=== PATIENT | male | born 1960 | race Caucasian/White ===

== ENCOUNTER 2017-04-22 10:35 | Inpatient (IN) | payer OTHER ==
[2017-04-22 10:45] VITALS: BMI 22.9
--- NOTE | 2017-04-22 10:58 | PDOC ---
History of Present Illness - General History Source: Patient Exam Limitations: No Limitations - History of Present Illness Initial Comments: 04/22/17 11:25 Patient is a 56 year old male with a significant past medical history of degenerative disk in back who presents to the ED with complaints of left sided pain for 3 days. Patient reports pain beginning night with slight relief sunday secondary to alcohol consumption. Patient states pain is excruciating with 8/10 intensity preventing sleep. He states slight headache beginning yesterday. He reports no bowel movement since sunday followed by no solid food ingestion since sunday. Patient reports slight nausea and chills secondary to soup and water consumption yesterday afternoon. Denies urinary urgency, urinary frequency. Denies kidney stone Hx. Denies any new injuries. Denies any trauma. Denies any radiating pain. Denies chest pain, SOB, dizziness, lightheadedness. Denies hematuria. Denies any other symptoms. Social: Smoker ( 1 pack per day), social alcohol drinker. Diverticulitis FHx ( mother) Allergies: N/A <Jerrod Mccray - Last Filed: 04/22/17 11:25> <Dorys Bah - Last Filed: 04/22/17 13:06> - General Chief Complaint: Pain, Acute Stated Complaint: PAIN Time Seen by Provider: 04/22/17 10:58 Past History <Jerrod Mccray - Last Filed: 04/22/17 11:25> - Psycho/Social/Smoking Cessation Hx Anxiety: No Suicidal Ideation: No Smoking History: Current every day smoker Have you smoked in the past 12 months: Yes Number of Cigarettes Smoked Daily: 20 Information on smoking cessation initiated: Yes 'Breaking Loose' booklet given: 09/29/13 Hx Alcohol Use: Yes ([facility]) Substance Use Type: None <Dorys Bah - Last Filed: 04/22/17 13:06> - Past Medical History Allergies/Adverse Reactions: Allergies Allergy/AdvReac Type Severity Reaction Status Date / Time No Known Allergies Allergy Verified 04/22/17 10:42 Home Medications: Ambulatory Orders Ibuprofen 800 mg PO TID 04/22/17 Review of Systems - Review of Systems Able to Perform ROS?: Yes Comments:: 04/22/17 11:26 GENERAL/CONSTITUTIONAL: + Chills. + Headache. No fever. No weakness. HEAD, EYES, EARS, NOSE AND THROAT: No change in vision. No ear pain or discharge. No sore throat. GASTROINTESTINAL: + Nausea. + Constipation. No vomiting, diarrhea GENITOURINARY: No dysuria, frequency, or change in urination. CARDIOVASCULAR: No chest pain or shortness of breath. RESPIRATORY: No cough, wheezing, or hemoptysis. MUSCULOSKELETAL: + Left flank pain No joint or muscle swelling or pain. No neck or back pain. SKIN: No rash NEUROLOGIC: No headache, vertigo, loss of consciousness, or change in strength/ sensation. ENDOCRINE: No increased thirst. No abnormal weight change. HEMATOLOGIC/LYMPHATIC: No anemia, easy bleeding, or history of blood clots. ALLERGIC/IMMUNOLOGIC: No hives or skin allergy. All Other Systems: Reviewed and Negative <Jerrod Mccray - Last Filed: 04/22/17 11:25> *Physical Exam - Vital Signs Last Vital Signs Temp Pulse Resp BP Pulse Ox 99.6 F 103 H 19 109/61 97 04/22/17 10:42 04/22/17 10:42 04/22/17 10:42 04/22/17 10:42 04/22/17 10:42 - Physical Exam Comments: 04/22/17 11:26 GENERAL: Awake, alert, and fully oriented, in no acute distress HEAD: No signs of trauma EYES: PERRLA, EOMI, sclera anicteric, conjunctiva clear ENT: Auricles normal inspection, hearing grossly normal, nares patent, oropharynx clear without exudates. Moist mucosa NECK: Normal ROM, supple, no lymphadenopathy, JVD, or masses LUNGS: Breath sounds equal, clear to auscultation bilaterally. No wheezes, and no crackles HEART: Regular rate and rhythm, normal S1 and S2, no murmurs, rubs or gallops ABDOMEN: Soft, nontender, normoactive bowel sounds. No guarding, no rebound. No masses MUSCULOSKELETAL: + Left flank tenderness. + Left lower quadrent mild super pubic tenderness. EXTREMITIES: Normal range of motion, no edema. No clubbing or cyanosis. No cords, erythema, or tenderness NEUROLOGICAL: Cranial nerves II through XII grossly intact. Normal speech, normal gait SKIN: Warm, Dry, normal turgor, no rashes or lesions noted. <Jerrod Mccray - Last Filed: 04/22/17 11:25> - Vital Signs Last Vital Signs Temp Pulse Resp BP Pulse Ox 99.6 F 103 H 19 109/61 97 04/22/17 10:42 04/22/17 10:42 04/22/17 10:42 04/22/17 10:42 04/22/17 10:42 <Dorys Bah - Last Filed: 04/22/17 13:06> ED Treatment Course - LABORATORY CBC & Chemistry Diagram: 04/22/17 11:16 04/22/17 11:16 <Jerrod Mccray - Last Filed: 04/22/17 11:25> - LABORATORY CBC & Chemistry Diagram: 04/22/17 11:16 04/22/17 11:16 <Dorys Bah - Last Filed: 04/22/17 13:06> Medical Decision Making - Medical Decision Making 04/22/17 1145 56yo male with L flank pain for multiple days assoc with nausea - was intermittent now constant. -concern for UTI, pyelo, renal colic, vs colitis -labs -ua -ct abd/pelvis -pain control, nausea control, ivf hydration 04/22/17 13:01 labs reviewed, elevated WBC to >19, diverticulitis on CT with fat stranding. Will start abx and will discuss with IM given elevated WBC. 04/22/17 13:02 call placed to IM, pending call back, pt with persistent pain will remedicate. pt updated on lab and imaging results. 04/22/17 13:[address] Chris, IM resident who accepts pt for admission to service under Dr. Franklin <Dorys Bah - Last Filed: 04/22/17 13:06> *DC/Admit/Observation/Transfer - Attestations Scribe Attestion: 04/22/17 11:27 Documentation prepared by Jerrod Mccray, acting as medical laboratory assistant for Dorys Bah DO, MD. <Jerrod Mccray - Last Filed: 04/22/17 11:25> - Discharge Dispostion Admit: Yes - Attestations Physician Attestion: 04/22/17 11:35 I, Dr. Dorys Bah DO, attest that this document has been prepared under my direction and personally reviewed by me in its entirety. I further attest, that it accurately reflects all work, treatment, procedures and medical decision -making performed by me. 04/22/17 13:06 <Dorys Bah - Last Filed: 04/22/17 13:06> Diagnosis at time of Disposition: Acute diverticulitis of intestine - Discharge Dispostion Condition at time of disposition: Guarded
[2017-04-22] MEDS ORDERED: SODIUM CHLORIDE 0.9% 1000 ML INFUS.BAG IV ONE ×2 (11:10→12:36)
[2017-04-22] MEDS ORDERED: ONDANSETRON 4 MG/2 ML VIAL IVPUSH ONE (11:10)
[2017-04-22] MEDS ORDERED: KETOROLAC TROMETHAMINE 15 MG/ML VIAL IVPUSH ONE (11:10)
[2017-04-22] MEDS ORDERED: ONDANSETRON 4 MG/2 ML VIAL ONE (11:21)
[2017-04-22] MEDS ORDERED: KETOROLAC TROMETHAMINE 15 MG/ML VIAL ONE (11:21)
[2017-04-22 11:26] LABS: BASOPHIL 0.3 % (0-2.0); EOSINOPHIL 0.1 % (0-4.5); MCH 31.3 pg (25.7-33.7); MCHC 34.1 g/dl (32.0-35.9); MEAN CELL VOLUME 91.9 fl (80-96); MEAN PLT VOLUME 9.3 fl (7.5-11.1); NEUTROPHILS 82.4 % (42.8-82.8); PLATELET COUNT 259 K/MM3 (134-434); WHITE BLOOD COUNT 19.2 K/mm3 (4.0-10.0)
[2017-04-22 11:53] LABS: ALBUMIN 3.3 g/dl (3.4-5.0); ALK PHOS 92 U/L (45-117); ANION GAP 10 (8-16); CALCIUM 8.8 mg/dL (8.5-10.1); CO2 24 mmol/L (21-32); GLUCOSE,RANDOM 117 mg/dL (74-106); SGOT/AST 6 U/L (15-37); SGPT/ALT 14 U/L (12-78); TOT PROT 7.1 g/dl (6.4-8.2)
[2017-04-22] MEDS ORDERED: METRONIDAZOLE 500 MG PREMIXED 100 ML IVPB ONE ×2 (12:32→13:02)
[2017-04-22] MEDS ORDERED: CIPROFLOXACIN 400 MG/D5W 200 ML IVPB ONE (12:32)
[2017-04-22] MEDS ORDERED: morphine CARPU-JECT 2 MG/1 ML DISP.SYRIN IVPUSH ONE (12:37)
[2017-04-22] MEDS ORDERED: morphine CARPU-JECT 2 MG/1 ML DISP.SYRIN ONE (13:02)
[2017-04-22 13:20] LABS: URINE APPEARANCE SLCLOUDY; URINE BILIRUBIN NEGATIVE (NEGATIVE); URINE BLOOD 2+ (NEGATIVE); URINE COLOR AMBER; URINE GLUCOSE (UA) NEGATIVE (NEGATIVE); URINE KETONE NEGATIVE (NEGATIVE); URINE NITRITE NEGATIVE (NEGATIVE)
[2017-04-22 13:35] LABS: URINE LEUK ESTERASE 1+ (NEGATIVE); URINE PROTEIN 1+ (NEGATIVE)
[2017-04-22 13:37] LABS: URINE HYALINE CAST 32 /lpf; URINE MUCUS MANY; URINE RBC 1 /hpf (0-3); URINE WBC 17 /hpf (3-5)
[2017-04-22] MEDS ORDERED: PNEUMOC 13-VAL CONJ-DIP CRM/PF 0.5 ML DISP.SYRIN IM ONE (14:18)
--- NOTE | 2017-04-22 15:05 | PN ---
Teaching Attending Note Name of Resident: Jayesh Chris ATTENDING PHYSICIAN STATEMENT I saw and evaluated the patient. I reviewed the resident's note and discussed the case with the resident. I agree with the resident's findings and plan as documented. SUBJECTIVE: This is a 56 year old man with a history of degenerative disease of the spine who comes to the ER complaining of LLQ abdominal pain x 3 days. He says he had intermittent pain for the first 2 days, then yesterday it became constant and more severe. Last night, he had shaking chills. He has had nausea but denies vomiting, diarrhea, melena, rectal bleeding, dysuria, hematuria, urinary frequency. OBJECTIVE: Vital Signs Period Temp Pulse Resp BP Sys/Gallegos Pulse Ox Last 24 Hr 99.6 F 71-103 18-19 106-109/61-69 96-97 HEART: S1S2, RRR LUNGS: Clear ABDOMEN: Soft, non-distended, (+) LLQ tenderness, normal BS EXTREMITIES: No edema ASSESSMENT AND PLAN: This is a 56 year old man with a history of degenerative disc disease who presented to the ER with LLQ pain, nausea and shaking chills. 1. Sepsis (tachycardia, leukocytosis) secondary to acute diverticulitis - NPO - IV fluid - IV Levaquin, Flagyl - Pain control - Zofran as needed for nausea - Will need colonoscopy in 1 month 2. Degenerative spine disease 3. 5 mm RML lung nodule
[2017-04-22] MEDS ORDERED: ONDANSETRON 4 MG/2 ML VIAL IVPB PRN (17:10)
[2017-04-22] MEDS ORDERED: morphine CARPU-JECT 2 MG/1 ML DISP.SYRIN IVPUSH PRN (17:10)
[2017-04-22] MEDS: SODIUM CHLORIDE 1,000 ML IV SCH (17:39)
--- NOTE | 2017-04-22 17:53 | HP ---
CHIEF COMPLAINT: L sided abdominal pain HISTORY OF PRESENT ILLNESS: 56 y/o M w/PMH of degenerative disc disease of the spine presents to the ER with L sided abdominal pain since Sunday. Pt felt the pain was tolerable and continued with usual activities. Yesterday pain became 10/10 and pt did not eat and only drank water. Pt also had chills yesterday and some nausea but no vomiting. Pt has had no BM yesterday but mainly because he has not been eating but has passed gas. Pain did not resolve and pt came to ER. Pt denies any changes in diet, N/V, diarrhea, blood in stool, dysuria, fevers, chest pain, SOB, recent travel, sick contacts. This is the first time he has had these symptoms. ER course was notable for: (1) CT abd/pelvis (2) (3) Recent Travel: denies PAST MEDICAL HISTORY: degenerative disc disease of the spine PAST SURGICAL HISTORY: inguinal hernia repair (as a child), ankle surgery 10-15 years ago for torn ligament Social History: Smokin ppd Alcohol: 2 drinks once a week Drugs: denies Family History: Mother has hx of diverticulitis Allergies No Known Allergies Allergy (Verified 04/22/17 10:42) HOME MEDICATIONS: Home Medications Medication Instructions Recorded Ibuprofen 800 mg PO TID 04/22/17 Omeprazole 40 mg PO DAILY 04/22/17 REVIEW OF SYSTEMS CONSTITUTIONAL: +chills Absent: fever CARDIOVASCULAR: Absent: chest pain, lightheadedness, peripheral edema RESPIRATORY: Absent: cough, shortness of breath, GASTROINTESTINAL: +LLQ and L flank pain, nausea Absent: vomiting, diarrhea, constipation, hematochezia GENITOURINARY: Absent: dysuria NEUROLOGIC: Absent: headache PHYSICAL EXAMINATION Vital Signs - 24 hr 04/22/17 14:07 Pulse Rate 71 Respiratory 18 Rate Blood Pressure 106/69 O2 Sat by Pulse 96 Oximetry (%) GENERAL: Awake, alert, and fully oriented, in no acute distress. EYES: extraocular movements intact, sclera anicteric, conjunctiva clear. No lid lag. EARS, NOSE, THROAT: Ears normal, nares patent NECK: Normal range of motion, supple LUNGS: Breath sounds equal, clear to auscultation bilaterally. No wheezes, and no crackles. No accessory muscle use. HEART: Regular rate and rhythm, normal S1 and S2 without murmur, rub or gallop. ABDOMEN: LLQ tenderness, L flank pain, hyperactive BS, Soft, no guarding, no rebound, no masses. LOWER EXTREMITIES: No calf tenderness. No peripheral edema. NEUROLOGICAL: Normal speech. Gait not observed. PSYCHIATRIC: Cooperative. Good eye contact. Appropriate mood and affect. SKIN: Warm, dry CBCD WBC 19.2 K/mm3 (4.0-10.0) H 04/22/17 11:16 RBC 4.65 M/mm3 (4.00-5.60) 04/22/17 11:16 Hgb 14.6 GM/dL (11.7-16.9) 04/22/17 11:16 Hct 42.7 % (35.4-49) 04/22/17 11:16 MCV 91.9 fl (80-96) 04/22/17 11:16 MCHC 34.1 g/dl (32.0-35.9) 04/22/17 11:16 RDW 13.0 % (11.9-15.9) 04/22/17 11:16 Plt Count 259 K/MM3 (134-434) 04/22/17 11:16 MPV 9.3 fl (7.5-11.1) 04/22/17 11:16 CMP Sodium 138 mmol/L (136-145) 04/22/17 11:16 Potassium 3.9 mmol/L (3.5-5.1) 04/22/17 11:16 Chloride 104 mmol/L (98-107) 04/22/17 11:16 Carbon Dioxide 24 mmol/L (21-32) 04/22/17 11:16 Anion Gap 10 (8-16) 04/22/17 11:16 BUN 14 mg/dL (7-18) 04/22/17 11:16 Creatinine 1.0 mg/dL (0.7-1.3) 04/22/17 11:16 Creat Clearance w eGFR > 60 (>60) 04/22/17 11:16 Random Glucose 117 mg/dL (74-106) H 04/22/17 11:16 Calcium 8.8 mg/dL (8.5-10.1) 04/22/17 11:16 Total Bilirubin 1.0 mg/dL (0.2-1.0) 04/22/17 11:16 AST 6 U/L (15-37) L 04/22/17 11:16 ALT 14 U/L (12-78) 04/22/17 11:16 Alkaline Phosphatase 92 U/L (45-117) 04/22/17 11:16 Total Protein 7.1 g/dl (6.4-8.2) 04/22/17 11:16 Albumin 3.3 g/dl (3.4-5.0) L 04/22/17 11:16 Laboratory Tests 04/22/17 11:16 Lipase 70 L Imaging: CT abd/pelvis: Impression: Stranding of the left perinephric fat likely due to the adjacent colitis. Diverticulosis coli with acute diverticulitis in the mid to distal descending colon and without gross evidenec of extraluminal air or abscess formation. 5 mm lung nodule. ASSESSMENT/PLAN: 56 y/o M w/PMH of degenerative disc disease of the spine presents to the ER with L sided abdominal pain found to have acute diverticulitis with SIRS 2/4+ -Acute diverticulitis with SIRS 2/4 (WBC, Tachy on admission). -Possible sepsis, but at this time pt appears to be non-toxic -Levaquin 750 mg IV qd; Metronidazole 500 mg IV q8h -NS @ 125 ml/hr -Pain control with morphine 1 mg IV q4h PRN for pain -Zofran 4 mg IV q6h PRN for nausea -f/u colonscopy in 1 mo after d/c -Degenerative disc disease of the spine -As seen on CT -pt on ibuprofen 800 mg po qd at home, will hold here as he is on morphine -Lung Nodule -will need outpatient f/u, current smoker -DVT ppx -early ambulation -FEN -NS @ 125 ml/hr -Monitor electrolytes -NPO, can advance diet to clear liquids tomorrow if pt improving -Dispo: -Monitor on med/surg Visit type - Emergency Visit Emergency Visit: Yes ED Registration Date: 04/22/17 Care time: The patient presented to the Emergency Department on the above date and was hospitalized for further evaluation of their emergent condition. - New Patient This patient is new to me today: Yes Date on this admission: 04/23/17 - Critical Care Critical Care patient: No
[2017-04-22] MEDS: METRONIDAZOLE 500 MG PREMIXED 100 ML IVPB SCH (18:47)
[2017-04-23] MEDS: METRONIDAZOLE 500 MG PREMIXED 100 ML IVPB SCH ×3 (02:24→17:41)
[2017-04-23] MEDS: SODIUM CHLORIDE 1,000 ML IV SCH ×3 (04:23→17:41)
[2017-04-23 07:20] LABS: BASOPHIL 0.8 % (0-2.0); MCH 31.6 pg (25.7-33.7); MCHC 33.7 g/dl (32.0-35.9); MEAN CELL VOLUME 93.6 fl (80-96); MEAN PLT VOLUME 9.6 fl (7.5-11.1); NEUTROPHILS 66.4 % (42.8-82.8); PLATELET COUNT 208 K/MM3 (134-434); RDW 13.2 % (11.9-15.9); WHITE BLOOD COUNT 9.5 K/mm3 (4.0-10.0)
[2017-04-23 07:43] LABS: ALBUMIN 2.7 g/dl (3.4-5.0); ALK PHOS 62 U/L (45-117); ANION GAP 8 (8-16); BILIRUBIN,TOTAL 0.6 mg/dL (0.2-1.0); CALCIUM 7.9 mg/dL (8.5-10.1); CO2 25 mmol/L (21-32); CREATININE 0.9 mg/dL (0.7-1.3); GLUCOSE,RANDOM 76 mg/dL (74-106); MAGNESIUM 2.1 mg/dL (1.8-2.4); SGOT/AST 6 U/L (15-37); SGPT/ALT 11 U/L (12-78); TOT PROT 5.7 g/dl (6.4-8.2)
--- NOTE | 2017-04-23 09:57 | PN ---
Physical Exam: SUBJECTIVE: Patient seen and examined. Abdominal pain is less severe. OBJECTIVE: Vital Signs Period Temp Pulse Resp BP Sys/Gallegos Pulse Ox Last 24 Hr 98.4 F-99 F 65-76 18-18 101-124/67-72 96-96 GENERAL: The patient is awake, alert, and fully oriented, in no acute distress. LUNGS: Breath sounds equal, clear to auscultation bilaterally, no wheezes, no crackles, no accessory muscle use. HEART: Regular rate and rhythm, S1, S2 without murmur, rub or gallop. ABDOMEN: Soft, (+) mild LLQ tenderness, nondistended, normoactive bowel sounds, no guarding, no rebound, no hepatosplenomegaly, no masses. EXTREMITIES: 2+ pulses, warm, well-perfused, no edema. Laboratory Results - last 24 hr 04/23/17 04/23/17 06:00 06:00 WBC 9.5 D RBC 3.87 L Hgb 12.2 D Hct 36.3 MCV 93.6 MCH 31.6 MCHC 33.7 RDW 13.2 Plt Count 208 MPV 9.6 Neutrophils % 66.4 Lymphocytes % 21.3 D Monocytes % 10.5 H Eosinophils % 1.0 D Basophils % 0.8 Sodium 143 Potassium 4.2 Chloride 110 H Carbon Dioxide 25 Anion Gap 8 BUN 16 Creatinine 0.9 Creat Clearance w eGFR > 60 Random Glucose 76 D Calcium 7.9 L Magnesium 2.1 Total Bilirubin 0.6 D AST 6 L ALT 11 L D Alkaline Phosphatase 62 D Total Protein 5.7 L Albumin 2.7 L Active Medications Generic Name Dose Route Start Last Admin Trade Name Jana PRN Reason Stop Dose Admin Sodium Chloride 1,000 mls @ 125 mls/hr 04/22/17 17:15 04/23/17 04:23 Normal Saline - IV 125 mls/hr ASDIR BRANDY Administration Metronidazole 100 mls @ 100 mls/hr 04/22/17 18:00 04/23/17 09:32 Flagyl 500mg Premixed Ivpb - IVPB 100 mls/hr Q8H-IV BRANDY Administration Levofloxacin 150 mls @ 100 mls/hr 04/23/17 12:00 Levaquin 750 Mg Premixed Ivpb - IVPB 04/23/17 13:29 DAILY ONE Morphine Sulfate 1 mg 04/22/17 17:10 04/23/17 09:29 Morphine Injection - IVPUSH 1 mg Q4H PRN Administration PAIN Ondansetron HCl 4 mg 04/22/17 17:10 Zofran Injection IVPB Q6H PRN NAUSEA Pneumococcal 13-Valent Conj Vacc 0.5 ml 04/22/17 14:18 Prevnar 13 Syringe - IM 04/22/17 14:19 .ONCE ONE ASSESSMENT/PLAN: This is a 56 year old man with a history of degenerative disc disease who presented to the ER with LLQ pain, nausea and shaking chills. 1. Sepsis secondary to acute diverticulitis and UTI - WBC, HR improved - Start clear liquids - Continue IV fluid - Continue IV Levaquin, Flagyl - Outpatient GI follow-up for colonoscopy in 1 month 2. Degenerative spine disease 3. 5 mm RML lung nodule Visit type - Emergency Visit Emergency Visit: Yes ED Registration Date: 04/22/17 Care time: The patient presented to the Emergency Department on the above date and was hospitalized for further evaluation of their emergent condition. - New Patient This patient is new to me today: No - Critical Care Critical Care patient: No - Discharge Referral Referred to [facility] Med [facility] No
[2017-04-23] MEDS ORDERED: CEFTRIAXONE 1 GM in DEXTROSE 5%-WATER - 50 ML IVPB SCH (10:00)
[2017-04-23] MEDS: NICOTINE 21 MG/24 HOURS TOPICAL PATCH TD SCH (11:50)
[2017-04-23] MEDS: LEVOFLOXACIN 750 MG IVPB 150 ML IVPB SCH (13:12)
--- NOTE | 2017-04-23 13:14 | CON.PULM ---
Consult Consult Specialty:: PULMONARY Referred by:: Dr. Franklin Reason for Consultation:: lung nodule - History of Present Illness Chief Complaint: abdominal pain History of Present Illness: 56yo male with h/o DJD who presented with abdominal pain. Found to have acute diverticulitis, started on IVF and antibiotics with improvement. During the work up, he had a CT A/P which showed incomplete view of a lung nodule. He is a long time smoker, started at age 18 and smoked 1 PPD up until this admission. No family history of lung cancer. He denies fevers, chills or night sweats aside from his presenting symptoms. No unintentional weight loss. 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 - History Source History Provided By: Patient, Medical Record Limitations to Obtaining History: No Limitations - Past Medical History Gastrointestinal: Yes: Diverticulitis - Alcohol/Substance Use Hx Alcohol Use: Yes (OCC) - Smoking History Smoking history: Current every day smoker Have you smoked in the past 12 months: Yes Aproximately how many cigarettes per day: 20 Home Medications - Allergies Allergies/Adverse Reactions: Allergies Allergy/AdvReac Type Severity Reaction Status Date / Time No Known Allergies Allergy Verified 04/22/17 10:42 - Home Medications Home Medications: Ambulatory Orders Ibuprofen 800 mg PO TID 04/22/17 Omeprazole 40 mg PO DAILY 04/22/17 Review of Systems - Review of Systems Constitutional: denies: Chills, Fever, Unintentional Wgt. Loss Eyes: denies: Recent Change in Vision HENT: denies: Nasal Congestion, Throat Pain Neck: denies: Stiffness, Tenderness Cardiovascular: denies: Chest Pain, Palpitations, Shortness of Breath Respiratory: denies: Cough, Hemoptysis, Wheezing Gastrointestinal: reports: Abdominal Pain Genitourinary: denies: Dysuria, Hematuria Musculoskeletal: reports: Back Pain Neurological: denies: Dizziness, Headache Endocrine: denies: Unexplained Weight Loss Physical Exam Vital Sings: Vital Signs Temperature 98.2 F 04/23/17 10:00 Pulse Rate 73 04/23/17 10:00 Respiratory Rate 18 04/23/17 10:00 Blood Pressure 121/57 04/23/17 10:00 O2 Sat by Pulse Oximetry (%) 96 04/23/17 09:00 Constitutional: Yes: Calm Eyes: Yes: Conjunctiva Clear, EOM Intact HENT: Yes: Atraumatic, Normocephalic Neck: Yes: Supple, Trachea Midline. No: Lymphadenopathy Cardiovascular: Yes: Regular Rate and Rhythm Respiratory: Yes: Regular, CTA Bilaterally ...Clubbing: No Gastrointestinal: Yes: Normal Bowel Sounds, Soft. No: Tenderness Edema: No Labs: CBC, BMP 04/23/17 06:00 04/23/17 06:00 Imaging - Results Cat Scan: Report Reviewed, Image Reviewed (partially imaged lung nodule) Problem List - Problems (1) Acute diverticulitis of intestine Code(s): K57.92 - DVTRCLI OF INTEST, PART UNSP, W/O PERF OR ABSCESS W/O BLEED (2) Lung nodule Code(s): R91.1 - SOLITARY PULMONARY NODULE Assessment/Plan Acute Diverticulitis Incidental Lung Nodule Smoker - will order dedicated CT chest noncontrast to further evaluate the lung nodule - will need outpt f/u - smoking cessation - further recommendations pending CT chest - DVT prophylaxis Thank you for this consult Quan Whaley MD
[2017-04-23] MEDS: oxyCODONE HCL 5 MG TABLET PO PRN (18:42)
[2017-04-24] MEDS: METRONIDAZOLE 500 MG PREMIXED 100 ML IVPB SCH ×2 (01:10→09:46)
[2017-04-24] MEDS: oxyCODONE HCL 5 MG TABLET PO PRN (05:21)
[2017-04-24] MEDS: SODIUM CHLORIDE 1,000 ML IV SCH ×2 (07:53)
--- NOTE | 2017-04-24 08:20 | PN ---
Physical Exam: SUBJECTIVE: Patient seen and examined at bed side. he is doing much better. he is still having LLQ abdominal pain , 6/10, local non radiating. He denies any Nausea, vomiting diarrhea and constipation, fever, chills or any cheat pain. OBJECTIVE: Vital Signs Period Temp Pulse Resp BP Sys/Gallegos Pulse Ox Last 24 Hr 97.7 F-98.8 F 60-73 18-20 121-151/57-93 96-96 GENERAL: The patient is awake, alert, and fully oriented, in no acute distress. HEAD: Normal with no signs of trauma. EYES: PERRL, extraocular movements intact, sclera anicteric, conjunctiva clear. No ptosis. ENT: Ears normal, nares patent, oropharynx clear without exudates, moist mucous membranes. NECK: Trachea midline, full range of motion, supple. LUNGS: Breath sounds equal, clear to auscultation bilaterally, no wheezes, no crackles, no accessory muscle use. HEART: Regular rate and rhythm, S1, S2 without murmur, rub or gallop. ABDOMEN: Soft, LLQ tenderness, nondistended, normoactive bowel sounds, no guarding, no rebound, no hepatosplenomegaly, no masses. EXTREMITIES: 2+ pulses, warm, well-perfused, no edema. NEUROLOGICAL: Normal speech, gait not observed. PSYCH: Normal mood, normal affect. SKIN: Warm, dry, normal turgor, no rashes or lesions noted Active Medications Generic Name Dose Route Start Last Admin Trade Name Freq PRN Reason Stop Dose Admin Sodium Chloride 1,000 mls @ 125 mls/hr 04/22/17 17:15 04/24/17 07:53 Normal Saline - IV 125 mls/hr ASDIR BRANDY Administration Metronidazole 100 mls @ 100 mls/hr 04/22/17 18:00 04/24/17 01:10 Flagyl 500mg Premixed Ivpb - IVPB 100 mls/hr Q8H-IV BRADNY Administration Levofloxacin 150 mls @ 100 mls/hr 04/23/17 13:00 04/23/17 13:12 Levaquin 750 Mg Premixed Ivpb - IVPB 100 mls/hr DAILY BRANDY Administration Morphine Sulfate 1 mg 04/22/17 17:10 04/23/17 09:29 Morphine Injection - IVPUSH 1 mg Q4H PRN Administration PAIN Nicotine 21 mg 04/23/17 10:00 04/23/17 11:50 Nicoderm Patch - TD 21 mg DAILY BRANDY Administration Ondansetron HCl 4 mg 04/22/17 17:10 Zofran Injection IVPB Q6H PRN NAUSEA Oxycodone HCl 5 mg 04/23/17 09:55 04/24/17 05:21 Roxicodone - PO 5 mg Q6H PRN Administration PAIN Pneumococcal 13-Valent Conj Vacc 0.5 ml 04/22/17 14:18 Prevnar 13 Syringe - IM 04/22/17 14:19 .ONCE ONE Imaging: CT abd/pelvis: Impression: Stranding of the left perinephric fat likely due to the adjacent colitis. Diverticulosis coli with acute diverticulitis in the mid to distal descending colon and without gross evidence of extraluminal air or abscess formation. 5 mm lung nodule. ASSESSMENT/PLAN: 56 y/o M w/PMH of degenerative disc disease of the spine presents to the ER with L sided abdominal pain found to have acute diverticulitis with SIRS 2/4+ -Acute diverticulitis with SIRS 2/4 (WBC, Tachy on admission). -Possible sepsis, but at this time pt appears to be non-toxic -Levaquin 750 mg IV qd; Metronidazole 500 mg IV q8h -NS @ 125 ml/hr -Pain control with morphine 1 mg IV q4h PRN for pain -Zofran 4 mg IV q6h PRN for nausea -f/u colonscopy in 1 mo after d/c -Degenerative disc disease of the spine -As seen on CT -pt on ibuprofen 800 mg po qd at home, will hold here as he is on morphine -Lung Nodule -will need outpatient f/u, current smoker - Nicotine dependent: - start nicotine patch -DVT ppx -early ambulation -FEN -NS @ 125 ml/hr -Monitor electrolytes -NPO, can advance diet to clear liquids tomorrow if pt improving -Dispo: -Monitor on med/surg This is a 56 year old man with a history of degenerative disc disease who presented to the ER with LLQ pain, nausea and shaking chills. 1. Sepsis secondary to acute diverticulitis and UTI - WBC, HR improved - Start clear liquids - Continue IV fluid - Continue IV Levaquin, Flagyl - Outpatient GI follow-up for colonoscopy in 1 month 2. Degenerative spine disease 3. 5 mm RML lung nodule
[2017-04-24] MEDS: NICOTINE 21 MG/24 HOURS TOPICAL PATCH TD SCH (09:45)
--- NOTE | 2017-04-24 10:36 | PN ---
Progress Note (short form) - Note Progress Note: PULMONARY Denies shortness of breath, cough or wheezing. CT chest done this AM, no official report but appears to have a 8mm RML nodule, interval basilar changes have developed since the CT A/P. Last Vital Signs Temp Pulse Resp BP Pulse Ox 97.7 F 73 20 151/93 96 04/24/17 06:00 04/24/17 06:00 04/24/17 06:00 04/24/17 06:00 04/23/17 21:00 Gen: NAD at rest Heart: RRR Lung: decreased breath sounds at the bases Abd: soft, nontender Ext: no edema CBC, BMP 04/23/17 06:00 04/23/17 06:00 Active Medications Sodium Chloride (Normal Saline -) 1,000 mls @ 125 mls/hr IV ASDIR BRADNY Last Admin: 04/24/17 07:53 Dose: 125 mls/hr Metronidazole (Flagyl 500mg Premixed Ivpb -) 100 mls @ 100 mls/hr IVPB Q8H-IV BRANDY Last Admin: 04/24/17 09:46 Dose: 100 mls/hr Levofloxacin (Levaquin 750 Mg Premixed Ivpb -) 150 mls @ 100 mls/hr IVPB DAILY BRANDY Last Admin: 04/23/17 13:12 Dose: 100 mls/hr Morphine Sulfate (Morphine Injection -) 1 mg IVPUSH Q4H PRN PRN Reason: PAIN Last Admin: 04/23/17 09:29 Dose: 1 mg Nicotine (Nicoderm Patch -) 21 mg TD DAILY BRANDY Last Admin: 04/24/17 09:45 Dose: 21 mg Ondansetron HCl (Zofran Injection) 4 mg IVPB Q6H PRN PRN Reason: NAUSEA Oxycodone HCl (Roxicodone -) 5 mg PO Q6H PRN PRN Reason: PAIN Last Admin: 04/24/17 05:21 Dose: 5 mg Pneumococcal 13-Valent Conj Vacc (Prevnar 13 Syringe -) 0.5 ml IM .ONCE ONE Stop: 04/22/17 14:19 A/P Acute Diverticulitis Incidental Lung Nodule Bibasilar Atelectasis Smoker - will need repeat CT chest in 3 months - smoking cessation, nicotine patches upon discharge - continue antibiotics for diverticulitis - CT chest findings likely atelectasis, do not suspect pneumonia at this time - DVT prophylaxis - no further inpatient pulmonary work up at this time, can be discharged from pulmonary standpoint Problem List - Problems (1) Acute diverticulitis of intestine Code(s): K57.92 - DVTRCLI OF INTEST, PART UNSP, W/O PERF OR ABSCESS W/O BLEED (2) Lung nodule Code(s): R91.1 - SOLITARY PULMONARY NODULE
[2017-04-24] MEDS: LEVOFLOXACIN 750 MG IVPB 150 ML IVPB SCH (13:58)
[2017-04-24 13:59] LABS: MCH 31.3 pg (25.7-33.7); MCHC 33.5 g/dl (32.0-35.9); MEAN CELL VOLUME 93.5 fl (80-96); MEAN PLT VOLUME 10.1 fl (7.5-11.1); PLATELET COUNT 208 K/MM3 (134-434); RDW 13.2 % (11.9-15.9); WHITE BLOOD COUNT 7.4 K/mm3 (4.0-10.0)
[2017-04-24] MEDS ORDERED: LEVOFLOXACIN 250 MG TABLET (FP) PO SCH ×2 (14:00)
--- NOTE | 2017-04-24 14:07 | PN ---
Teaching Attending Note Name of Resident: Lucian Gannon ATTENDING PHYSICIAN STATEMENT I saw and evaluated the patient. I reviewed the resident's note and discussed the case with the resident. I agree with the resident's findings and plan as documented. SUBJECTIVE: states pain has resolved. only on deep palpation. tolerating liquid diet. had 1 BM yesterday. no blood or melena noted. denies CP, SOB, fever, chills, hemoptysis, weight loss or change in appetite. Last colonoscopy 5 years ago. Done for routine. normal per pt. OBJECTIVE: Last Vital Signs Temp Pulse Resp BP Pulse Ox 97.9 F 56 L 18 132/88 96 04/24/17 09:00 04/24/17 09:00 04/24/17 09:00 04/24/17 09:00 04/24/17 09:00 General NAD CV S1 S2 RRR no murmur/rub/gallop Lungs CTA B/L no wheezing/rales/rhonchi Abdomen RLQ pain on deep palpation. no rebound or guarding. normoactive BS ASSESSMENT AND PLAN: 56 year old man with a history of degenerative disc disease who presented to the ER with LLQ pain, nausea and shaking chills. 1. Sepsis secondary to acute diverticulitis and UTI- clinically improved. requesting regular diet. will advance diet. if tolerating can d/c home on levaquin and flagyl to complete 10 day course. will need GI follow up to repeat colonoscopy in 6-8W. verbalized understanding and agreement. 2. Acute drop in Hgb- likely dilutional. no signs of bleeding. repeat cbc 2. Degenerative spine disease 3. Pulmonary nodule- CT scan pending. will need f/u with pulmonary in [address] 4. d/c home pending if able to tolerate diet
[2017-04-24 14:21] VITALS: BP 155/95; PULSE 59; TEMP 98.3
--- NOTE | 2017-04-24 14:37 | MSN ---
Progress Note (SOAP) - Subjective Chief Complaint: LLQ abdominal pain History of Present Illness: Mr. Tyson is a 56 y/o male with a PMH of degenerative disc disease of the spine who presented to the ER this past Sunday with lower left sided abdominal pain. The pain began this past Sunday, and pt reports the pain was initially 10/10. Today the patient rates the pain as 6-7/10. The pain radiates to the left flank. Pt can now tolerate liquid diet. He has had 2 bowel movements in the last day. Pt denies fever, nausea, vomiting, changes in weight, diarrhea, blood in stool, dysuria, chest pain, SOB, recent travel, or sick contacts. - Current Medications Current Medications: Active Medications Sodium Chloride (Normal Saline -) 1,000 mls @ 125 mls/hr IV ASDIR [facility] Last Admin: 04/24/17 07:53 Dose: 125 mls/hr Metronidazole (Flagyl 500mg Premixed Ivpb -) 100 mls @ 100 mls/hr IVPB Q8H-IV [facility] Last Admin: 04/24/17 09:46 Dose: 100 mls/hr Levofloxacin (Levaquin -) 750 mg PO DAILY@0600 [facility] Last Admin: 04/24/17 14:05 Dose: 750 mg Morphine Sulfate (Morphine Injection -) 1 mg IVPUSH Q4H PRN PRN Reason: PAIN Last Admin: 04/23/17 09:29 Dose: 1 mg Nicotine (Nicoderm Patch -) 21 mg TD DAILY [facility] Last Admin: 04/24/17 09:45 Dose: 21 mg Ondansetron HCl (Zofran Injection) 4 mg IVPB Q6H PRN PRN Reason: NAUSEA Oxycodone HCl (Roxicodone -) 5 mg PO Q6H PRN PRN Reason: PAIN Last Admin: 04/24/17 05:21 Dose: 5 mg - Objective Vital Signs: Vital Signs Temperature 98.3 F 04/24/17 14:20 Pulse Rate 59 L 04/24/17 14:20 Respiratory Rate 18 04/24/17 14:20 Blood Pressure 155/95 04/24/17 14:20 O2 Sat by Pulse Oximetry (%) 96 04/24/17 09:00 Constitutional: Yes: Well Nourished, No Distress, Calm HENT: Yes: WNL, Atraumatic, Normocephalic Cardiovascular: Yes: WNL, Regular Rate and Rhythm Respiratory: Yes: WNL, Regular, CTA Bilaterally Gastrointestinal: Yes: Tenderness (LLQ pain with deep palpation) Neurological: Yes: WNL, Alert, Oriented Labs Lab Results: CBC, BMP 04/24/17 13:35 04/23/17 06:00 Laboratory Results - last 24 hr 04/22/17 04/24/17 11:16 13:35 WBC 7.4 RBC 3.87 L Hgb 12.1 Hct 36.2 MCV 93.5 MCH 31.3 MCHC 33.5 RDW 13.2 Plt Count 208 MPV 10.1 Urine Color Maria Elena Urine Appearance Slcloudy Urine pH 5.0 Ur Specific [place] 1.025 Urine Protein 1+ H Urine Glucose (UA) Negative Urine Ketones Negative Urine Blood 2+ H Urine Nitrite Negative Urine Bilirubin Negative Urine Urobilinogen 2.0 Ur Leukocyte Esterase 1+ H Urine RBC 1 Urine WBC 17 Ur Epithelial Cells Rare Hyaline Casts 32 Urine Mucus Many Past Medical History - Medical History Hx Blood Transfusions: No - Surgical History Anesthesia Reaction: No - Psychiatric History Hx Anxiety: No Hx Alcohol Use: Yes (OCC) - Smoking Cessation Smoking history: Current every day smoker
--- NOTE | 2017-04-24 14:46 | MSN ---
Progress Note (short form) - Note Progress Note: CHIEF COMPLAINT: LLQ abdominal pain HISTORY OF PRESENT ILLNESS: Mr. Tyson is a 56 y/o male with PMH of degenerative disc disease of the spine presented to the ER this past Sunday with left sided abdominal pain. The pain began this past Sunday, and pt reports it was initially a 10/10 on the pain scale. Pt says it is now 6-7/10 on the pain scale, and it radiates to his left flank. Pt is able to tolerate liquid diet. He has had 2 bowel movements in the last 24 hours. Pt denies fever, nausea, vomiting, changes in weight, diarrhea, blood in stool, dysuria, chest pain, SOB, recent travel, and sick contacts. PAST MEDICAL HISTORY: degenerative disc disease of L5-S1 PAST SURGICAL HISTORY: inguinal hernia repair (as a child), ankle surgery to repair torn ligament 10-15 years ago HOME MEDICATIONS: Home Medications Medication Instructions Recorded Ibuprofen 800 mg PO TID 04/22/17 Omeprazole 40 mg PO DAILY 04/22/17 ACTIVE MEDICATIONS: Current Medications Generic Name Dose Route Start Last Admin Trade Name Freq PRN Reason Stop Dose Admin Sodium Chloride 1,000 mls @ 125 mls/hr 04/22/17 17:15 04/24/17 07:53 Normal Saline - IV 125 mls/hr ASDIR BRANDY Administration Metronidazole 100 mls @ 100 mls/hr 04/22/17 18:00 04/24/17 09:46 Flagyl 500mg Premixed Ivpb - IVPB 100 mls/hr Q8H-IV BRANDY Administration Levofloxacin 750 mg 04/24/17 14:00 04/24/17 14:05 Levaquin - PO 750 mg DAILY@0600 BRANDY Administration Morphine Sulfate 1 mg 04/22/17 17:10 04/23/17 09:29 Morphine Injection - IVPUSH 1 mg Q4H PRN Administration PAIN Nicotine 21 mg 04/23/17 10:00 04/24/17 09:45 Nicoderm Patch - TD 21 mg DAILY BRANDY Administration Ondansetron HCl 4 mg 04/22/17 17:10 Zofran Injection IVPB Q6H PRN NAUSEA Oxycodone HCl 5 mg 04/23/17 09:55 04/24/17 05:21 Roxicodone - PO 5 mg Q6H PRN Administration PAIN ALLERGIES: NKDA, NKA SOCIAL HISTORY: Tobacco: 40 pack year history Alcohol: 4-5 drinks one day/week Drugs: denies FAMILY HISTORY: mother has history of diverticulitis PHYSICAL EXAMINATION Last Vital Signs Temp Pulse Resp BP Pulse Ox 98.3 F 59 L 18 155/95 96 04/24/17 14:20 04/24/17 14:20 04/24/17 14:20 04/24/17 14:20 04/24/17 09:00 GENERAL: Awake, well-appearing, in no apparent distress HEART: Regular rate and rhythm, normal S1 and S2 LUNGS: clear to auscultation B/L ABDOMEN: LLQ tenderness, left flank pain, no guarding, no masses NEUROLOGICAL: Normal speech, normal gait SKIN: Warm, dry Lab Results: CMP Sodium 143 mmol/L (136-145) 04/23/17 06:00 Potassium 4.2 mmol/L (3.5-5.1) 04/23/17 06:00 Chloride 110 mmol/L (98-107) H 04/23/17 06:00 Carbon Dioxide 25 mmol/L (21-32) 04/23/17 06:00 Anion Gap 8 (8-16) 04/23/17 06:00 BUN 16 mg/dL (7-18) 04/23/17 06:00 Creatinine 0.9 mg/dL (0.7-1.3) 04/23/17 06:00 Creat Clearance w eGFR > 60 (>60) 04/23/17 06:00 Random Glucose 76 mg/dL (74-106) D 04/23/17 06:00 Calcium 7.9 mg/dL (8.5-10.1) L 04/23/17 06:00 Magnesium 2.1 mg/dL (1.8-2.4) 04/23/17 06:00 Total Bilirubin 0.6 mg/dL (0.2-1.0) D 04/23/17 06:00 AST 6 U/L (15-37) L 04/23/17 06:00 ALT 11 U/L (12-78) L D 04/23/17 06:00 Alkaline Phosphatase 62 U/L (45-117) D 04/23/17 06:00 Total Protein 5.7 g/dl (6.4-8.2) L 04/23/17 06:00 Albumin 2.7 g/dl (3.4-5.0) L 04/23/17 06:00 Lipase 70 U/L (73-393) L 04/22/17 11:16 CBC WBC 7.4 K/mm3 (4.0-10.0) 04/24/17 13:35 RBC 3.87 M/mm3 (4.00-5.60) L 04/24/17 13:35 Hgb 12.1 GM/dL (11.7-16.9) 04/24/17 13:35 Hct 36.2 % (35.4-49) 04/24/17 13:35 MCV 93.5 fl (80-96) 04/24/17 13:35 MCH 31.3 pg (25.7-33.7) 04/24/17 13:35 MCHC 33.5 g/dl (32.0-35.9) 04/24/17 13:35 RDW 13.2 % (11.9-15.9) 04/24/17 13:35 Plt Count 208 K/MM3 (134-434) 04/24/17 13:35 MPV 10.1 fl (7.5-11.1) 04/24/17 13:35 Neutrophils % 66.4 % (42.8-82.8) 04/23/17 06:00 Lymphocytes % 21.3 % (8-40) D 04/23/17 06:00 Monocytes % 10.5 % (3.8-10.2) H 04/23/17 06:00 Eosinophils % 1.0 % (0-4.5) D 04/23/17 06:00 Basophils % 0.8 % (0-2.0) 04/23/17 06:00 Urine Test Results Urine Color Maria Elena 04/22/17 11:16 Urine Appearance Slcloudy 04/22/17 11:16 Urine pH 5.0 (5.0-8.0) 04/22/17 11:16 Ur Specific [place] 1.025 (1.005-1.025) 04/22/17 11:16 Urine Protein 1+ (NEGATIVE) H 04/22/17 11:16 Urine Glucose (UA) Negative (NEGATIVE) 04/22/17 11:16 Urine Ketones Negative (NEGATIVE) 04/22/17 11:16 Urine Blood 2+ (NEGATIVE) H 04/22/17 11:16 Urine Nitrite Negative (NEGATIVE) 04/22/17 11:16 Urine Bilirubin Negative (NEGATIVE) 04/22/17 11:16 Ur Leukocyte Esterase 1+ (NEGATIVE) H 04/22/17 11:16 Urine RBC 1 /hpf (0-3) 04/22/17 11:16 Urine WBC 17 /hpf (3-5) 04/22/17 11:16 Ur Epithelial Cells Rare /hpf (FEW) 04/22/17 11:16 Urine Mucus Many 04/22/17 11:16 Imaging: CT abdomen/pelvis: Impression: Stranding of the left perinephric fat likely due to adjacent colitis. Diverticulosis coli with acute diverticulitis in the mid to distal descending colon and without gross evidence of extraluminal air or abscess formation. 5 mm pulmonary nodule in the right middle lobe ASSESSMENT/PLAN: 56 y/o male with PMH of degenerative disc disease of the spine presented to ER with left sided abdominal pain found to have acute diverticulitis. #Acute diverticulitis - continue Levaquin 750 mg IV qd; Flagyl 500 mg IV q8h (currently day 3) - continue morphine 1 mg IV q4h PRN for pain - continue Zofran 4 mg IV q6h PRN for nausea - advance to solid food diet - f/u colonoscopy in 6-8 weeks #SIRS - resolved #Lung nodule - chest CT results pending - routine screening #Decrease in hemoglobin - repeat CBC #Elevated BP - monitor BP #Degenerative disc disease of the spine - continue home medications #DVT ppx - early ambulation #FEN - NS @ 125 ml/hr - monitor electrolytes HERBERT Juarez-III
--- NOTE | 2017-04-24 16:11 | DS ---
Physical Exam: SUBJECTIVE: Patient seen and examined OBJECTIVE: Vital Signs Period Temp Pulse Resp BP Sys/Gallegos Pulse Ox Last 24 Hr 97.7 F-98.8 F 56-73 18-20 130-155/83-95 96-96 PHYSICAL EXAM GENERAL: The patient is awake, alert, and fully oriented, in no acute distress. HEAD: Normal with no signs of trauma. EYES: PERRL, extraocular movements intact, sclera anicteric, conjunctiva clear. ENT: Ears normal, nares patent, oropharynx clear without exudates, moist mucous membranes. NECK: Trachea midline, full range of motion, supple. LUNGS: Breath sounds equal, clear to auscultation bilaterally, no wheezes, no crackles, no accessory muscle use. HEART: Regular rate and rhythm, S1, S2 without murmur, rub or gallop. ABDOMEN: Soft, nontender, nondistended, normoactive bowel sounds, no guarding, no rebound, no hepatosplenomegaly, no masses. EXTREMITIES: 2+ pulses, warm, well-perfused, no edema. NEUROLOGICAL: Cranial nerves II through XII grossly intact. Normal speech, gait not observed. PSYCH: Normal mood, normal affect. SKIN: Warm, dry, normal turgor, no rashes or lesions noted. LABS Laboratory Results - last 24 hr 04/24/17 13:35 WBC 7.4 RBC 3.87 L Hgb 12.1 Hct 36.2 MCV 93.5 MCH 31.3 MCHC 33.5 RDW 13.2 Plt Count 208 MPV 10.1 HOSPITAL COURSE: Date of Admission:04/22/17 Date of Discharge: 04/24/17 Discharge Summary Reason For Visit: DIVERTICULITIS OF INTESTINE Current Active Problems Acute diverticulitis of intestine (Acute) Lung nodule (Acute) Condition: Stable - Instructions Diet, Activity, Other Instructions: Please follow up with your primary care physician within week follow up with your pulmonary Dr. 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 Referrals: Quan Whaley MD, MD [Staff Physician] - Disposition: HOME - Home Medications Comprehensive Discharge Medication List: Ambulatory Orders Ibuprofen 800 mg PO TID 04/22/17 Omeprazole 40 mg PO DAILY 04/22/17 Levofloxacin [Levaquin] 750 mg PO DAILY #7 tab 04/24/17 Metronidazole [Flagyl -] 500 mg PO Q8H #21 tablet 04/24/17 - Discharge Referral Referred to [facility] Med [facility] No
== END 2017-04-24 17:41 | disposition home or self-care (01) | DRG 872 ==
LOC: JER 10:35 → JERBED 13:10 → J7W 17:20
PROVIDERS: ADMIT Internal Medicine; ATTEND Internal Medicine
DX: A41.9 Sepsis, unspecified organism (principal); N39.0 Urinary tract infection, site not specified; J98.11 Atelectasis; K57.32 Diverticulitis of large intestine without perforation or abscess without bleeding; R71.0 Precipitous drop in hematocrit; R91.1 Solitary pulmonary nodule; F17.210 Nicotine dependence, cigarettes, uncomplicated; M51.37 Other intervertebral disc degeneration, lumbosacral region
CPT/HCPCS: 36415; 71250-TC; 74176-TC; 80053; 81003; 81015; 83690; 83735; 85025; 85027; 99283-25

== ENCOUNTER 2024-05-21 11:19 | Inpatient (IN) | payer OTHER ==
[2024-05-21] MEDS ORDERED: KETOROLAC TROMETHAMINE 30 MG/1 ML VIAL ONE (11:28)
[2024-05-21 11:30] VITALS: BMI 24.3
[2024-05-21] MEDS: KETOROLAC TROMETHAMINE 30 MG/1 ML VIAL IVPUSH ONE (11:43)
[2024-05-21 11:54] LABS: BASO % 0.7 % (0-2.0); EOS % 0.3 % (0-4.5); HEMATOCRIT 46.4 % (35.4-49); HEMOGLOBIN 15.6 GM/dL (11.7-16.9); LYMPH % 24.9 % (8-40); MCH 31.1 pg (25.7-33.7); MCHC 33.6 g/dl (32.0-35.9); MEAN CELL VOLUME 92.5 fl (80-96); MEAN PLT VOLUME 8.6 fl (7.5-11.1); MONO % 9.4 % (3.8-10.2); NEUT % 64.7 % (42.8-82.8); PLATELET COUNT 282 10^3/uL (134-434); RBC 5.02 M/mm3 (4.00-5.60); RDW 13.1 % (11.9-15.9); WHITE BLOOD COUNT 12.4 K/mm3 (4.0-10.0)
[2024-05-21 12:00] LABS: INR 1.01 (0.83-1.09); PROTHROMBIN TIME (PATIENT) 11.6 SEC (9.7-13.0)
[2024-05-21 12:03] LABS: ACTIVATED PTT 35.3 SECONDS (25.2-36.5)
[2024-05-21] MEDS ORDERED: CLINDAMYCIN 600MG PREMIX IVPB 600 MG/50 ML BAG IVPB ONE (12:22)
[2024-05-21] MEDS: CLINDAMYCIN 600MG PREMIX IVPB 600 MG/50 ML BAG IVPB ONE (12:31)
[2024-05-21 12:42] LABS: POTASSIUM 4.6 mmol/L (3.5-5.1)
[2024-05-21 12:44] LABS: CALCIUM 9.3 mg/dL (8.5-10.1)
[2024-05-21 12:45] LABS: ALBUMIN 3.8 g/dl (3.4-5.0); BLOOD UREA NITROGEN 19.8 mg/dL (7-18)
[2024-05-21 12:48] LABS: CREATININE 1.1 mg/dL (0.55-1.3)
[2024-05-21 12:49] LABS: BILIRUBIN,TOTAL 1.1 mg/dL (0.2-1)
[2024-05-21 12:50] LABS: TOT PROT 7.3 g/dl (6.4-8.2)
[2024-05-21 13:20] LABS: BF WBC & OTHER NUCLEATED CELLS 17357 /mm3
[2024-05-21 13:21] LABS: BODY FLUID MACROPHAGES 2 %
[2024-05-21] MEDS: CLINDAMYCIN 600MG PREMIX IVPB 600 MG/50 ML BAG IVPB SCH (18:46)
[2024-05-22] MEDS: ACETAMINOPHEN 1000 MG/100 ML BAG IVPB PRN (07:05)
[2024-05-22 08:27] LABS: BASO % 0.7 % (0-2.0); EOS % 0.9 % (0-4.5); HEMATOCRIT 43.1 % (35.4-49); HEMOGLOBIN 14.8 GM/dL (11.7-16.9); LYMPH % 26.5 % (8-40); MCH 31.3 pg (25.7-33.7); MCHC 34.4 g/dl (32.0-35.9); MEAN CELL VOLUME 91.2 fl (80-96); MEAN PLT VOLUME 8.6 fl (7.5-11.1); NEUT % 62.9 % (42.8-82.8); PLATELET COUNT 274 10^3/uL (134-434); RBC 4.72 M/mm3 (4.00-5.60); RDW 13.1 % (11.9-15.9); WHITE BLOOD COUNT 11.2 K/mm3 (4.0-10.0)
[2024-05-22 08:30] LABS: POTASSIUM 4.3 mmol/L (3.5-5.1)
[2024-05-22 08:34] LABS: ALBUMIN 3.2 g/dl (3.4-5.0); BLOOD UREA NITROGEN 23.2 mg/dL (7-18); CALCIUM 8.9 mg/dL (8.5-10.1)
[2024-05-22 08:38] LABS: CREATININE 1.1 mg/dL (0.55-1.3)
[2024-05-22 08:39] LABS: TOT PROT 6.2 g/dl (6.4-8.2)
[2024-05-22] MEDS: oxyCODONE HCL 5 MG TABLET PO PRN (08:45)
[2024-05-22] MEDS: ENOXAPARIN NA (PORCINE) 40 MG/0.4 ML DISP.SYRIN SQ SCH (10:38)
[2024-05-23 06:00] VITALS: BP 111/76; PULSE 75; RESP 18; TEMP 97.7
[2024-05-23 10:43] LABS: BASO % 0.9 % (0-2.0); EOS % 1.2 % (0-4.5); HEMATOCRIT 44.2 % (35.4-49); HEMOGLOBIN 15.2 GM/dL (11.7-16.9); LYMPH % 22.6 % (8-40); MCH 31.3 pg (25.7-33.7); MCHC 34.4 g/dl (32.0-35.9); MEAN CELL VOLUME 91.1 fl (80-96); MEAN PLT VOLUME 8.2 fl (7.5-11.1); NEUT % 66.3 % (42.8-82.8); PLATELET COUNT 269 10^3/uL (134-434); RBC 4.86 M/mm3 (4.00-5.60); RDW 12.8 % (11.9-15.9); WHITE BLOOD COUNT 10.8 K/mm3 (4.0-10.0)
== END 2024-05-23 13:50 | disposition home or self-care (01) | DRG 554 ==
LOC: JER 11:19 → JERBED 15:24 → J8W 17:35 → OBSVTOIN 17:41
PROVIDERS: ADMIT Internal Medicine; ATTEND Internal Medicine
PROC: 0S9C3ZX Drainage of Right Knee Joint, Percutaneous Approach, Diagnostic (ICD-10-PCS; principal; 2024-05-21)
DX: M25.061 Hemarthrosis, right knee (principal); L03.115 Cellulitis of right lower limb; M25.461 Effusion, right knee
CPT/HCPCS: 36415; 73560-TC-RT-FY; 80053; 85025; 85610; 85651; 85730; 86140; 87070; 87075; 87205; 93971-TC; 94760; 97116-GP; 97161-GP; 99285-25; G0378; J0131